=== PATIENT | female | born 1990 | race Caucasian/White ===

== ENCOUNTER 2019-03-10 21:14 | Emergency (ER) | payer OTHER ==
[~2019-03-10] VITALS: Ht 162.6 cm; Wt 60.1 kg
[2019-03-10 21:21] VITALS: Ht 162.6 cm; Wt 60.1 kg
[2019-03-10] MEDS ORDERED: SOD CHLORIDE 0.9% 1,000 ML IV STA (21:21)
[2019-03-10 21:29] VITALS: BP 131/65; PULSE 79; RESP 18
[2019-03-10] MEDS ORDERED: LIDOCAINE 1%/EPI (1:100,000) (MDV) 20 ML INJ ONE (21:30)
[2019-03-10] MEDS ORDERED: SOD CHLORIDE 0.9% 100 ML ONE (21:31)
[2019-03-10] MEDS ORDERED: IOHEXOL 300MG/ML 150 ML BTL ONE (21:31)
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
[2019-03-10] MEDS ORDERED: LIDOCAINE 1%/EPI 30 ML INJ INJ ONE (23:00)
[2019-03-11] MEDS ORDERED: ACETAMINOPHEN 325 MG TAB PO ONE (02:00)
== END 2019-03-11 02:58 | disposition home or self-care (01) ==
LOC: E/R 21:14
DX: S01.111A Laceration without foreign body of right eyelid and periocular area, initial encounter (principal); S09.90XA Unspecified injury of head, initial encounter; F10.920 Alcohol use, unspecified with intoxication, uncomplicated; V59.88XA Occupant (driver) (passenger) of pick-up truck or van injured in other specified transport accidents, initial encounter
CPT/HCPCS: 12013; 70450; 70486; 71260; 72125; 74177; 80048; 80307; 85025; 85610; 85730; J7030; Q9967; Z7610; 36415; 93005